=== PATIENT | female | born 1990 | race Caucasian/White ===

== ENCOUNTER 2022-06-10 10:06 | Emergency (ER) | payer OTHER ==
[~2022-06-10] VITALS: Ht 162.6 cm; Wt 65.5 kg
[2022-06-10 10:34] VITALS: BP 105/69
== END 2022-06-10 14:11 | disposition home or self-care (01) ==
LOC: EMS 10:13
DX: N20.0 Calculus of kidney (principal); F41.9 Anxiety disorder, unspecified; F32.A Depression, unspecified; Z13.9 Encounter for screening, unspecified
CPT/HCPCS: 74176; 99284; Z7502